=== PATIENT | female | born 1955 | race African-American/Black ===

== ENCOUNTER 2019-11-21 08:27 | Inpatient (IN) | payer MEDICARE, OTHER ==
[~2019-11-21] VITALS: Ht 162.6 cm; Wt 107.5 kg
[2019-11-21] MEDS ORDERED: SODIUM CHLORIDE 0.9% 1000ML 1,000 ML IV STA (08:34)
--- NOTE | 2019-11-21 08:34 | Emergency Department Note ---
History of Present Illnes History of Present Illness Chief Complaint: Abdominal Complaints History of Present Illness This is a 64 year old female with dysuria and periumbilical pain of one day duration. . Historian: Patient Arrival Mode: Car Onset (how long ago): day(s) Radiation: Reports back Severity: moderate Duration (how long): day(s) (1) Chronicity: new Relieving factors: none Exacerbating factors: none Associated symptoms: Reports nausea/vomiting Treatments prior to arrival: none Past Medical/Family History Physician Review I have reviewed the patient's past medical and family history. Any updates have been documented here. Past Medical History Recent Fever: Yes Clinical Suspicion of Infectio: Yes New/Unexplained Change in Ment: No Past Medical History: Hypertension Past Surgical History: None Social History Smoking Cessation: Never Smoker Alcohol Use: None Any Illegal Drug Use: No Review of Systems Review of Systems Constitutional: Reports no symptoms EENTM: Reports no symptoms Cardiovascular: Reports no symptoms Respiratory: Reports no symptoms Gastrointestinal: Reports abdominal pain, Reports nausea Genitourinary: Reports no symptoms Musculoskeletal: Reports no symptoms Integumentary: Reports no symptoms Neurological: Reports no symptoms Psychological: Reports no symptoms Endocrine: Reports no symptoms Hematological/Lymphatic: Reports no symptoms Physical Exam Related Data Allergies: Coded Allergies: No Known Allergies (Unverified , 11/21/19) Triage Vital Signs Vital Signs Date Time Temp Pulse Resp B/P (MAP) Pulse Ox O2 Delivery O2 Flow Rate FiO2 11/21/19 08:32 100.3 95 18 136/78 97 11/21/19 15:06 Mask 10 Vital signs reviewed: Yes Physical Exam CONSTITUTIONAL Constitutional: Present obese HENT HENT: Present normocephalic, Present atraumatic, Present oropharynx clear/moist, Present nose normal HENT L/R: Present left ext ear normal, Present right ext ear normal EYES Eyes: Reports PERRL, Reports conjunctivae normal NECK Neck: Present ROM normal PULMONARY Pulmonary: Present effort normal, Present breath sounds normal CARDIOVASCULAR Cardiovascular: Present regular rhythm, Present heart sounds normal, Present capillary refill normal, Present normal rate GASTROINTESTINAL Abdominal: Present soft, Present distension, Present tender (lisa-umbilical) GENITOURINARY Genitourinary: Present exam deferred SKIN Skin: Present warm, Present dry MUSCULOSKELETAL Musculoskeletal: Present ROM normal NEUROLOGICAL Neurological: Present alert, Present oriented x 3, Present no gross motor or sensory deficits PSYCHOLOGICAL Psychological: Present mood/affect normal, Present judgement normal Results Laboratory Lab results reviewed: Yes Laboratory comments Laboratory Tests Test 11/21/19 13:15 Imaging Imaging results reviewed: Yes Impressions [place] [id number] [place] [address] Patient Name: NABIL PIEDRA MR #: [id number] : 1955 Age/Sex: 64/F Req #: [id number] Adm Physician: Ordered by: ESTHER RIBEIRO DO Report #: [id number] Location: ER Room/Bed: Procedure: [id number] CT/CT ABDOMEN/PELVIS W Exam Date: 11/21/19 Exam Time: 1050 REPORT STATUS: Signed EXAM: CT Abdomen and Pelvis WITH contrast INDICATION: lisa-umbilical pain COMPARISON: None. TECHNIQUE: Abdomen and pelvis were scanned utilizing a multidetector helical scanner from the lung base to the pubic symphysis after administration of IV contrast. Coronal and sagittal reformations were obtained. Dose modulation, iterative reconstruction, and/or weight based adjustment of the mA/kV was utilized to reduce the radiation dose to as low as reasonably achievable. Routine protocol was performed. Scan was performed when during portal venous phase. IV CONTRAST: 150 mL of Omnipaque 300 ORAL CONTRAST: Water COMPLICATIONS: None RADIATION DOSE: Total DLP: 745.09 mGy-cm Estimated effective dose: (DLP x 0.015 x size factor) mSv CTDIvol has been reviewed. It is below the limits set by the Radiation Protocol Committee (RPC). FINDINGS: LINES and TUBES: None. LOWER THORAX: Unremarkable HEPATOBILIARY: No focal hepatic lesions. No biliary ductal dilation. GALLBLADDER: No radio-opaque stones or sludge. No gallbladder wall thickening. SPLEEN: No splenomegaly. No focal splenic lesion. PANCREAS: No focal masses or ductal dilatation. ADRENALS: No adrenal nodules KIDNEYS/URETERS: Kidneys enhance symmetrically. No hydronephrosis. No cystic or solid mass lesions. No stones. GI TRACT: No abnormal distention, or evidence of bowel obstruction. The appendix is enlarged and edematous (series 2, image [id number] with adjacent inflammatory stranding compatible with acute appendicitis. There is no evidence of perforation or phlegmon formation. PELVIC ORGANS/BLADDER: The bladder is unremarkable. LYMPH NODES: No lymphadenopathy. VESSELS: No aortic aneurysm or dissection. PERITONEUM / RETROPERITONEUM: No free air or fluid. BONES: There are degenerative changes in the spine. There is a focus of sclerosis in the L3 vertebral body likely a bone island. SOFT TISSUES: Unremarkable. IMPRESSION: Uncomplicated acute appendicitis. Signed by: Nikita Andres MD on 11/21/2019 11:45 AM Dictated By: NIKITA ANDRES MD 1145 Transcribed By: MIREILLE on 11/21/19 1145 COPY TO: ESTHER RIBEIRO DO~ Assessment & Plan Medical Decision Making MDM 64 yof with abdominal pain. CBC, CMP, UA and CTS ordered to r/o appendicitis, diverticulitis, UTI, kidney stone, perforated viscus, obstruction, ischemia, and biliary pathology. Plan to admit to Dr Mayco Virgen's service with consult to Dr Kristopher Stephen who graciously agreed to see patient at bedside. Assessment & Plan Final Impression: (1) Appendicitis Depart Disposition: ADMITTED ESTHER RIBEIRO DO Nov 21, 2019 08:34
[2019-11-21] MEDS ORDERED: ONDANSETRON HCL INJ 2MG/ML 2ML 2 MG/ML VIAL IV NR ×2 (08:45→11:30)
[2019-11-21] MEDS ORDERED: KETOROLAC TROMETHAMINE 30 MG/ML VIAL IV NR (08:45)
[2019-11-21] MEDS ORDERED: ACETAMINOPHEN 325 MG TAB PO NR (08:45)
[2019-11-21 09:29] LABS: BASOPHILS # (AUTO) 0.1 (0.0-0.1); BASOPHILS % 0.6 % (0.0-1.0); EOSINOPHILS # (AUTO) 0.1 (0.0-0.4); EOSINOPHILS % 0.3 % (0.0-6.0); LYMPHOCYTES # (AUTO) 1.8 (1.0-3.2); LYMPHOCYTES % 12.4 % (18.0-39.1); MEAN CORPUSCULAR HEMOGLOBIN 27.5 pg (28-32); MEAN CORPUSCULAR HGB CONC 32.5 g/dL (31-35); MEAN CORPUSCULAR VOLUME 84.6 fL (81-99); MONOCYTES # (AUTO) 1.1 (0.2-0.8); MONOCYTES % 7.6 % (4.4-11.3); NEUTROPHILS # (AUTO) 11.3 (2.1-6.9); NEUTROPHILS % 78.5 % (38.7-80.0); PLATELET COUNT 278 x10e3/uL (140-360); RED BLOOD COUNT 4.73 x10e6/uL (3.6-5.1); RED CELL DISTRIBUTION WIDTH 14.5 % (11.7-14.4)
[2019-11-21 10:24] LABS: ALANINE AMINOTRANSFERASE 15 IU/L (0-55); ALBUMIN 3.8 g/dL (3.5-5.0); ALKALINE PHOSPHATASE 75 IU/L (40-150); ANION GAP 14.1 mmol/L (8-16); BLOOD UREA NITROGEN 7 mg/dL (7-26); BUN/CREATININE RATIO 9 (6-25); CALCIUM 9.7 mg/dL (8.4-10.2); CARBON DIOXIDE 27 mmol/L (22-29); CHLORIDE 99 mmol/L (98-107); CLARITY,URINE HAZY (CLEAR); COLOR,URINE YELLOW (YELLOW); CREATININE, SERUM 0.75 mg/dL (0.57-1.11); EST GLOMERULAR FILTRATION RATE > 60 ML/MIN (60-); GLUCOSE 121 mg/dL (74-118); KETONES,URINE TRACE (NEGATIVE); LEUKOCYTE ESTERASE ,URINE NEGATIVE (NEGATIVE); LIPASE 26 U/L (8-78); NITRITE,URINE NEGATIVE (NEGATIVE); POTASSIUM 3.1 mmol/L (3.5-5.1); PROTEIN,URINE DIPSTICK >=300 (NEGATIVE); SODIUM 137 mmol/L (136-145)
[2019-11-21 10:25] LABS: BILIRUBIN,URINE SMALL (NEGATIVE); URINE UROBILINOGEN 0.2 mg/dL (0.2 - 1)
[2019-11-21 10:29] LABS: BACTERIA,URINE FEW /HPF; EPITHELIAL CELLS,URINE FEW /LPF; MUCUS,URINE MODERATE (RARE); RBC,URINE 0-5 /HPF (0-5); WBC,URINE (MAN) 0-5 /HPF (0-5)
[2019-11-21] MEDS ORDERED: SODIUM CHLORIDE 0.9% 50ML 50 ML ONE (10:40)
[2019-11-21] MEDS ORDERED: IOPAMIDOL 370 MG/ML 200 ML INFUS..BTL INJ ONE (10:40)
--- NOTE | 2019-11-21 10:55 | NUR ---
REC'D REPORT FROM [facility] FOR CONTINUITY OF CARE
[2019-11-21] MEDS ORDERED: MORPHINE SULFATE 2 MG/ML SYR 1ML IV NR (11:15)
--- NOTE | 2019-11-21 11:49 | Diagnostic Imaging Report ---
EXAM: CT Abdomen and Pelvis WITH contrast INDICATION: lisa-umbilical pain COMPARISON: None. TECHNIQUE: Abdomen and pelvis were scanned utilizing a multidetector helical scanner from the lung base to the pubic symphysis after administration of IV contrast. Coronal and sagittal reformations were obtained. Dose modulation, iterative reconstruction, and/or weight based adjustment of the mA/kV was utilized to reduce the radiation dose to as low as reasonably achievable. Routine protocol was performed. Scan was performed when during portal venous phase. IV CONTRAST: 150 mL of Omnipaque 300 ORAL CONTRAST: Water COMPLICATIONS: None RADIATION DOSE: Total DLP: 745.09 mGy-cm Estimated effective dose: (DLP x 0.015 x size factor) mSv CTDIvol has been reviewed. It is below the limits set by the Radiation Protocol Committee (RPC). FINDINGS: LINES and TUBES: None. LOWER THORAX: Unremarkable HEPATOBILIARY: No focal hepatic lesions. No biliary ductal dilation. GALLBLADDER: No radio-opaque stones or sludge. No gallbladder wall thickening. SPLEEN: No splenomegaly. No focal splenic lesion. PANCREAS: No focal masses or ductal dilatation. ADRENALS: No adrenal nodules KIDNEYS/URETERS: Kidneys enhance symmetrically. No hydronephrosis. No cystic or solid mass lesions. No stones. GI TRACT: No abnormal distention, or evidence of bowel obstruction. The appendix is enlarged and edematous (series 2, image [id number] with adjacent inflammatory stranding compatible with acute appendicitis. There is no evidence of perforation or phlegmon formation. PELVIC ORGANS/BLADDER: The bladder is unremarkable. LYMPH NODES: No lymphadenopathy. VESSELS: No aortic aneurysm or dissection. PERITONEUM / RETROPERITONEUM: No free air or fluid. BONES: There are degenerative changes in the spine. There is a focus of sclerosis in the L3 vertebral body likely a bone island. SOFT TISSUES: Unremarkable. IMPRESSION: Uncomplicated acute appendicitis. Signed by: Nikita Acuna MD on 11/21/2019 11:45 AM
[2019-11-21] MEDS ORDERED: ONDANSETRON HCL INJ 2MG/ML 2ML 2 MG/ML VIAL IV PRN ×3 (12:00→15:00)
[2019-11-21] MEDS ORDERED: SODIUM CHLORIDE 0.9% 1000ML 1,000 ML IV SCH ×2 (12:00→15:00)
[2019-11-21] MEDS ORDERED: MORPHINE SULFATE 2 MG/ML SYR 1ML IV PRN ×2 (12:00→15:00)
--- NOTE | 2019-11-21 12:14 | NUR ---
TALK TO PATIENT RE ADMISSION TO HOSPITAL
[2019-11-21] MEDS: PIPER-TAZ 3.375 GM 50 ML IV SCH ×2 (12:15→17:12)
--- NOTE | 2019-11-21 12:59 | NUR ---
DR. LOPEZ HERE TO SEE THE PATIENT
--- NOTE | 2019-11-21 13:23 | NUR ---
SWABBED FOR COVID-19
[2019-11-21] MEDS ORDERED: BUPIVACAINE HCL 0.5% INJ 30 ML VIAL INJ ONE (13:46)
[2019-11-21] MEDS ORDERED: ETOMIDATE 2 MG/ML 10 ML INJ IV ONE (14:06)
[2019-11-21] MEDS ORDERED: ROCURONIUM BROMIDE 10 MG/ML 5ML VIAL IV ONE (14:06)
[2019-11-21] MEDS ORDERED: LIDOCAINE HCL 2% LOCAL INJ 5 ML SDV VIAL INJ ONE (14:06)
[2019-11-21] MEDS ORDERED: DEXAMETHASONE SOD PHOS INJ 4 MG/ML VIAL ONE (14:06)
[2019-11-21] MEDS ORDERED: PROPOFOL IV EMULSION 10 MG/ML 20 ML VIAL ONE (14:06)
[2019-11-21] MEDS ORDERED: ONDANSETRON HCL INJ 2MG/ML 2ML 2 MG/ML VIAL ONE ×2 (14:06→15:54)
[2019-11-21] MEDS ORDERED: SUCCINYLCHOLINE CHLORIDE 20 MG/ML 10ML VIAL ONE (14:06)
[2019-11-21] MEDS ORDERED: SUGAMMADEX SODIUM 200 MG/2 ML VIAL IV ONE (14:48)
[2019-11-21] MEDS ORDERED: MORPHINE SULFATE INJ 4 MG/ML INJ 1ML IV PRN (15:00)
[2019-11-21] MEDS ORDERED: NALOXONE HCL INJ 0.4 MG/ML AMP ONE (15:01)
[2019-11-21 16:26] VITALS: BP 141/61
[2019-11-21 16:33] VITALS: BP 141/61
--- NOTE | 2019-11-21 16:44 | NUR ---
patient received from pacu via stretcher. see admit assess. sinus rhythm with 1st degree av block. 3 trocar sites to abdomen dry and intact. vitals stable with no distress.
[2019-11-21] MEDS: DEXTROSE 5%/0.45% SOD CHL 1,000 ML IV SCH (16:45)
[2019-11-21] MEDS: HYDROCODONE/APAP 5MG-325MG TAB PO PRN ×2 (17:44→22:26)
[2019-11-21] MEDS ORDERED: PIPER-TAZ 3.375 GM 50 ML IV SCH (18:00)
--- NOTE | 2019-11-21 19:51 | Consultation ---
DATE OF CONSULTATION: 11/21/2019 HISTORY OF PRESENT ILLNESS: The patient is a 64-year-old female, presents with complaints of abdominal pain. She has had for three days. She had some associated nausea. The pains persisted, mostly periumbilical, but also right lower abdomen. She has not had any fever. She was evaluated CT of the abdomen and pelvis, which revealed findings of acute appendicitis. PAST MEDICAL HISTORY: Significant for hypertension for which she takes hydrochlorothiazide. She has not had previous surgery. ALLERGIES: THERE ARE NO KNOWN ALLERGIES. FAMILY HISTORY: Noncontributory. SOCIAL HISTORY: The patient occasionally smokes cigarettes. Does not drink alcohol use or any other drugs. REVIEW OF SYSTEMS: As stated above, otherwise was negative. PHYSICAL EXAMINATION: GENERAL: The patient is awake and alert, in no distress. She had a temperature of 100.3 on arrival. HEENT: Sclerae is not icteric. NECK: Supple. No masses. LUNGS: Equal breath sounds are clear bilaterally. CARDIAC: Regular rate and rhythm with no murmur. ABDOMEN: Tender in the right lower quadrant, localized signs of peritonitis. There is no mass. No organomegaly. EXTREMITIES: Have no edema. NEUROLOGIC: Grossly intact. LABORATORY TESTS: White blood cell count is 14.4, hemoglobin 13, and hematocrit 40. Chemistries were essentially normal. Potassium, slightly low. ASSESSMENT: A 64-year-old female, acute appendicitis. She will benefit from appendectomy. PLAN: To schedule for today. Procedure was explained to the patient including risks, benefits, and alternatives. She understands. She has had the opportunity to ask questions. She is aware of the possible need for open surgery. Thank you for asking me to see Ms. Chavarria. MD LOBO Barcenas/NISHA /[id number]
[2019-11-21] MEDS ORDERED: MIDAZOLAM HCL 2 MG/2 ML VIAL ONE (19:53)
[2019-11-21] MEDS ORDERED: FENTANYL CITRATE/PF 100MCG/2 ML INJ ONE (19:53)
--- NOTE | 2019-11-21 20:41 | Operative Report ---
DATE OF PROCEDURE: 11/21/2019 SURGEON: Augustine Stephen MD PREOPERATIVE DIAGNOSIS: Acute appendicitis. POSTOPERATIVE DIAGNOSIS: Acute appendicitis. PROCEDURES: Diagnostic laparoscopy, laparoscopic appendectomy. HAND EXPANSION ENVELOPE MAKER: None. ANESTHESIA: General endotracheal. INDICATIONS AND FINDINGS: The patient is a 64-year-old female, admitted with 3-day history of abdominal pain, localized right lower quadrant. Workup revealed acute appendicitis. At Surgery, the patient was found acutely inflamed appendix. TECHNIQUE: After adequate general endotracheal anesthesia, the patient in supine position, the abdomen was prepped and draped in sterile fashion with ChloraPrep solution. Skin in the umbilicus was infiltrated with 0.5% Marcaine. Incision was made in the umbilicus. Abdominal wall was elevated and Veress needle was introduced. Pneumoperitoneum was then created. A 10 mm trocar and cannula was then passed through the umbilical wound. Laparoscopic camera was introduced. Initial laparoscopy revealed some inflammatory change in the right lower quadrant. A 12 mm trocar and cannula were placed suprapubically and a 5 mm trocar and cannula were placed in the right upper quadrant, these were placed under direct vision. The cecum was elevated, was found to be a small bowel adhered over acutely inflamed appendix. The fibrinous adhesions were broken up. Appendix was adherent to the pelvic sidewall, this was freed, at break fibrinous adhesions appendix was elevated. The mesoappendix was divided with LigaSure device. The base of the appendix was divided with Endo-RICH stapler, close to the cecum, freeing the appendix completely. Appendix was then placed into an Endopouch and brought out through the suprapubic cannula. Care was taken to not touch the abdominal wall. The area of the appendectomy was inspected for hemostasis, which was seen to be adequate. It was irrigated with saline. All fluid aspirated and inspected for hemostasis, which was seen to be adequate. Instruments and cannulas were removed. Pneumoperitoneum was evacuated. Wounds were then closed, fascia in the umbilical and suprapubic wounds closed with 0 Vicryl. Skin to all wounds closed with 4-0 Vicryl in subcuticular fashion. Dermabond and sterile dressing were applied. The patient tolerated the procedure well. Estimated blood loss was 10 mL. There were no complications. All counts were correct. The patient was taken to the recovery room in satisfactory condition. Augustine W MD LOBO Stephen/NISHA /[id number]
[2019-11-21 20:51] VITALS: BP 138/51
[2019-11-21 21:00] VITALS: BP 138/51
[2019-11-22] VITALS: BP 120/50
[2019-11-22] MEDS: PIPER-TAZ 3.375 GM 50 ML IV SCH ×2 (01:08→05:49)
[2019-11-22] MEDS: DEXTROSE 5%/0.45% SOD CHL 1,000 ML IV SCH (01:09)
[2019-11-22 04:00] VITALS: BP 119/52
[2019-11-22 05:37] LABS: BASOPHILS # (AUTO) 0.1 (0.0-0.1); BASOPHILS % 0.3 % (0.0-1.0); HEMATOCRIT 34.5 % (34.2-44.1); HEMOGLOBIN 10.9 g/dL (12.0-16.0); LYMPHOCYTES % 6.2 % (18.0-39.1); MEAN CORPUSCULAR HEMOGLOBIN 27.3 pg (28-32); MEAN CORPUSCULAR HGB CONC 31.6 g/dL (31-35); MEAN CORPUSCULAR VOLUME 86.3 fL (81-99); MONOCYTES % 6.4 % (4.4-11.3); NEUTROPHILS # (AUTO) 13.8 (2.1-6.9); NEUTROPHILS % 86.5 % (38.7-80.0); PLATELET COUNT 241 x10e3/uL (140-360); RED CELL DISTRIBUTION WIDTH 14.6 % (11.7-14.4)
[2019-11-22 06:48] LABS: ALANINE AMINOTRANSFERASE 40 IU/L (0-55); ALBUMIN 3.1 g/dL (3.5-5.0); ALBUMIN/GLOBULIN RATIO 0.9 (0.8-2.0); ALKALINE PHOSPHATASE 68 IU/L (40-150); ANION GAP 11.5 mmol/L (8-16); BLOOD UREA NITROGEN 8 mg/dL (7-26); BUN/CREATININE RATIO 11 (6-25); CALCIUM 8.5 mg/dL (8.4-10.2); CARBON DIOXIDE 26 mmol/L (22-29); CHLORIDE 104 mmol/L (98-107); CREATININE, SERUM 0.75 mg/dL (0.57-1.11); EST GLOMERULAR FILTRATION RATE > 60 ML/MIN (60-); GLUCOSE 165 mg/dL (74-118); POTASSIUM 3.5 mmol/L (3.5-5.1); SODIUM 138 mmol/L (136-145)
[2019-11-22] MEDS ORDERED: ULTRACET TABLE1 EACH PO (06:58)
[2019-11-22 07:57] VITALS: BP 129/62
[2019-11-22 09:07] VITALS: BP 129/62
--- NOTE | 2019-11-23 05:16 | Discharge Summary ---
DISCHARGE DIAGNOSIS: Appendicitis, status post laparoscopic appendectomy. HISTORY OF PRESENT ILLNESS AND HOSPITAL COURSE: The patient is a lady, who presented with right lower quadrant abdominal pain, was found to have acute appendicitis on CT scan, uncomplicated. She was then taken to the OR by Dr. Stephen, who performed a laparoscopic appendectomy without any complications. On postop day #1 she was already ambulating, doing well, having minimal discomfort with positive flatus and she really want to go home once she was cleared by Dr. Stephen. She was able to be discharged home in good condition and follow up with her primary care physician in 1 to 2 weeks as well as with Dr. Stephen in about 10 to 14 days. Please see hospital chart for full details. MD MARTHA Kinsey/NISHA /[id number]
--- OUTSIDE RECORDS SUMMARY | 2019-12-25 02:11 | XMS REPORT | Clinical Summary ---
Author Author [facility] Organization [facility] ict Address Unknown Phone Unavailable Care Team Providers Care Infrastructure Consultant Name Role Phone Verna Dunn MD PCP [phone] Allergies Comments Active Allergy Reactions Severity Noted Date Flu Vac 2011 Nausea and High 03/31/2014 (18-64yrs)(Pf) Vomiting Medications End Date Status Medication Sig Dispensed Refills Start Date Active blood glucose Use as 1 Kit 0 meterIndications: Type II directed. 0 or unspecified type diabetes mellitus without mention of complication, not stated as uncontrolled Active LANCETSIndications: Type Use as 1 Box 2 1 II or unspecified type Directed 0 diabetes mellitus without mention of complication, not stated as uncontrolled Active baclofen (LIORESAL) 10 mg Take 1 tablet 30 tablet 0 tabletIndications: by mouth 3 8 Medication refill times daily as needed for Pain. Active Diclofenac Sodium Apply to 100 g 0 05/16/20 1 (VOLTAREN) 1 % affected 8 GelIndications: Acute area. pain of both knees, Low back pain without sciatica, unspecified back pain laterality, unspecified chronicity Active amLODIPine (NORVASC) 5 mg Take 1 tablet 90 tablet 3 tabletIndications: by mouth 9 Essential hypertension, daily. benign, Medication refill Active hydroCHLOROthiazide Take 1 tablet 90 tablet 3 (HYDRODIURIL) 25 mg by mouth 9 tabletIndications: daily. Essential hypertension, benign, Medication refill Active atorvastatin (LIPITOR) 40 Take 1 tablet 90 tablet 2 mg tabletIndications: by mouth at 9 Mixed hyperlipidemia bedtime nightly. Active traMADol (ULTRAM) 50 mg Take 1 tablet 30 tablet 0 tabletIndications: Acute by mouth 9 pain of both knees, Low every 8 hours back pain without as needed for sciatica, unspecified Pain. back pain laterality, unspecified chronicity Active docusate sodium (COLACE) Take 1 -4 /d 100 capsule 3 100 mg depending on 9 capsuleIndications: bowels. Constipation, unspecified constipation type Active traMADol (ULTRAM) 50 mg Take 1 tablet 60 tablet 3 tabletIndications: Low by mouth 2 9 back pain with sciatica, times daily sciatica laterality Take 1 pill unspecified, unspecified twice a day. back pain laterality, unspecified chronicity Active Problems Problem Noted Date Osteomyelitis of shoulder, right 05/30/2010 Chronic right shoulder pain 05/30/2010 Osteoarthritis of right shoulder region 05/30/2010 Adhesive capsulitis of shoulder 05/30/2010 DJD of shoulder 05/23/2010 Unspecified constipation 06/22/2009 Knee pain 05/26/2009 Obesity, unspecified 05/26/2009 HTN (hypertension) Immunizations Name Administration Dates Next Due Influenza Vaccine 03/31/2014 (Deferred: Patie nt Refused) Influenza Vaccine, 05/16/2018 (Deferred: Contr aindication) Seasonal, Injectable PPD 03/15/2014 Td Tetanus, diphtheria 11/24/2008 Toxoids Vaccine Family History Medical History Relation Name Comments Arthritis Father Heart Mother Relation Name Status Comments Brother Alive Father Alive Maternal Grandfather Maternal Grandmother Mother heart attack (Age 67) Paternal Grandfather Paternal Grandmother Sister Alive Social History Date Tobacco Use Types Packs/Day Years Used Current Every Day Smoker Cigarettes 0 10 Smokeless Tobacco: Never Used Tobacco Cessation: Counseling Given: Yes Comments: 4 cigarettes daily Drinks/Week oz/Week Comments Alcohol Use occasional beer Yes Food Insecurity Answer Date Recorded Within the past 12 months, you worried that your Never joie e 08/09/2017 food would run out before you got money to buy more. Within the past 12 months, the food you bought Never true 08/09/2017 just didn't last and you didn't have mo kiki to get more. Sex Assigned at Date Recorded Not on file Industry Job Start Date Occupation Not on file Not on file Not on file Travel End Travel History Travel Start No recent travel history available. Last Filed Vital Signs Not on file Plan of Treatment Health Maintenance Due Date Last Done Comments Colonoscopy 10yr 05/27/2017 05/27/2007 IMM Pneumococcal Age 65 2019 and Up Breast Cancer Scrn 08/02/2019 08/01/2018, (Yearly) 08/09/2017, 08/09/2017, Additional history exists Results Not on fileafter 11/20/2018
--- OUTSIDE RECORDS SUMMARY | 2019-12-25 02:12 | XMS REPORT | Continuity of Care Document ---
Author Author [facility] t Organization [facility] Address [address] [place] [address] Phone Unavailable Care Team Providers Care Market Development Manager Name Role Phone MD Ne LU PCP ESTHER RIBEIRO Unavailable Payers Payer Name Policy Type Policy Number Effective Date Expiration Date S ource Medicare A & B [id number] [facility] Problems Condition Name Condition Details Condition Category Status Onset Date Resolution Date Last Treatment Date Treating Clinician Comments Source Osteomyelitis of shoulder, right Osteomyelitis of shoulder, righ t Disease Active 2010-05-30 00:00:00 [facility] Chronic right shoulder pain Chronic right shoulder pain Disease Active 2010-05-30 00:00:00 [facility] rachel Osteoarthritis of right shoulder region Osteoarthritis of ri ght shoulder region Disease Active 2010-05-30 00:00:00 [facility] 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 Dis ease Active 2010-05-30 00:00:00 [facility] DJD of shoulder DJD of shoulder Disease Active 2010-05-23 00:00:00 [facility] Unspecified constipation Unspecified constipation Disease Acti ve 2009-06-22 00:00:00 [facility] Knee pain Knee pain Disease Active 2009-05-26 00:00:00 [facility] Obesity, unspecified Obesity, unspecified Disease Active 00:00:00 [facility] Appendicitis Problem Active [facility] HTN (hypertension) HTN (hypertension) Disease Active [facility] Allergies, Adverse Reactions, Alerts Allergy Name Allergy Type Status Severity Reaction(s) Onset Date Inacti ve Date Treating Clinician Comments Source Flu Vac 2011 (18-64yrs)(Pf) Propensity to adverse reactions to drug Active Nausea and [facility] 2014[facility]03[facility] Family Member Diagnosis Comments Start Date Stop Date Source Natural father Arthritis [facility] Natural mother Heart [facility] Social History Social Habit Start Date Stop Date Quantity Comments Source History of tobacco use Cigarette Smoker [facility] Sex Assigned At [facility] Alcohol intake 2018-10-29 00:00:00 2018-10-29 00:00:00 Current drinker of alcohol (finding) [facility] SDOH Food Worry 2017-08-09 00:00:00 2017-08-09 00:00:00 1 [facility] Food Scarcity 2017-08-09 00:00:00 2017-08-09 00:00:00 1 [facility] Tobacco Comment 2015-09-06 00:00:00 2015-09-06 00:00:00 4 cigarettes daily [facility] Alcohol Comment 2015-09-06 00:00:00 2015-09-06 00:00:00 occasional be er [facility] Smoking Status Start Date Stop Date Source Current every day smoker 2018-10-29 00:00:00 [facility] Medications Ordered Medication Name Filled Medication Name Start Date Stop Da te Current Medication? Ordering Clinician Indication Dosage Frequency Signature (SIG) Comments Components Source docusate sodium (COLACE) 100 mg capsule 2018-09-08 00:00:00 Yes Constipation, unspecified constipation type Take 1 -4 /d depending on bowels. [facility] traMADol (ULTRAM) 50 mg tablet 2018-09-08 00:00:00 Yes Low back pain with sciatica, sciatica laterality unspecified, unspecified back pain laterality, unspecified chronicity 50mg Q.5D Take 1 tablet by mouth 2 times daily Take 1 pill twice a day. [facility] amLODIPine (NORVASC) 5 mg tablet 2018-08-01 00:00:00 Yes Medication refill 5mg QD Take 1 tablet by mouth daily. [facility] hydroCHLOROthiazide (HYDRODIURIL) 25 mg tablet 2018-08-01 00 :00:00 Yes Medication refill 25mg QD Take 1 tablet by mouth daily. [facility] atorvastatin (LIPITOR) 40 mg tablet 2018-08-01 00:00:00 Yes Mixed hyperlipidemia 40mg Take 1 tablet by mouth at bedtime nightly. [facility] traMADol (ULTRAM) 50 mg tablet 2018-08-01 00:00:00 Yes Low back pain without sciatica, unspecified back pain laterality, unspecified chronicity 50mg Take 1 tablet by mouth every 8 hours as needed for Pain. [facility] Diclofenac Sodium (VOLTAREN) 1 % Gel 2018-05-16 00:00:00 Yes Low back pain without sciatica, unspecified back pain laterality, unspecified chronicity Apply to affected area. [facility] baclofen (LIORESAL) 10 mg tablet 2017-12-06 00:00:00 Yes Medication refill 10mg Take 1 tablet by mouth 3 times daily as needed for Pain. [facility] blood glucose meter 2010-03-20 00:00:00 Yes Type II or unspecified type diabetes mellitus without mention of complication, not stated as uncontrolled Use as directed. [facility] LANCETS 2010-03-20 00:00:00 Yes Type II or unspecified type diabetes mellitus without mention of complication, not stated as uncontrolled Use as Directed [facility] Tramadol Hcl/Acetaminophen (Ultracet Tablet) 1 Each TA BLET Tramadol Hcl/Acetaminophen (Ultracet Tablet) 1 Each TABLET Yes Every 4 Hours as needed for Mild Pain (1-3) Or Fever>100.8 [facility] Immunizations Ordered Immunization Name Filled Immunization Name Date Status Comments Source PPD 2014-03-15 00:00:00 Completed [facility] Td Tetanus, diphtheria Toxoids Vaccine 2008-11-24 00:00:00 Completed [facility] Vital Signs Vital Name Observation Time Observation Value Comments Source Body Temperature 2019-11-22 09:07:00 98.5 [degF] [facility] BMI (Body Mass Index) 2019-11-21 16:23:00 40.7 kg/m2 [facility] Weight 2019-11-21 08:32:00 237 [lb_av] [facility] Procedures Procedure Date / Time Performed Performing Clinician [facility] e Computed tomography of abdomen and pelvis with contrast 00:00:00 [facility] Plan of Care Planned Activity Planned Date Details Comments Source Future Scheduled Test 2019-08-02 00:00:00 Breast Cancer Scrn (Yearly) [code = Breast Cancer Scrn (Yearly)] [facility] Future Scheduled Test 2019 00:00:00 IMM Pneumococcal A ge 65 and Up [code = IMM Pneumococcal Age 65 and Up] [facility] Scheduled Test 2017-05-27 00:00:00 Screening for reagan gnant neoplasm of colon (procedure) [code = 733218235] [facility] Instructions Wound Care (General) [facility] Encounters Start Date/Time End Date/Time Encounter Type Admission Type [facility] Care Department Encounter ID Source 2019-11-21 12:04:00 2019-11-22 09:15:00 Discharged Inpatient 1 ESTHER RIBEIRO [facility] [id number] [facility] 2018-09-05 00:00:00 2018-09-05 00:00:00 Outpatient [facility] [id number] [facility] 2018-09-05 00:00:00 2018-09-05 00:00:00 Outpatient [facility] [id number] [facility] 2018-09-02 00:00:00 2018-09-02 00:00:00 Outpatient [facility] [id number] [facility] 2018-08-08 00:00:00 2018-08-08 00:00:00 Outpatient [facility] [id number] [facility] 2018-08-08 00:00:00 2018-08-08 00:00:00 Outpatient [facility] [id number] [facility] 2018-08-08 00:00:00 2018-08-08 00:00:00 Outpatient [facility] [id number] [facility] 2018-08-06 00:00:00 2018-08-06 00:00:00 Outpatient [facility] [id number] [facility] 2018-08-06 00:00:00 2018-08-06 00:00:00 Outpatient [facility] [id number] [facility] 2018-08-01 14:10:15 2018-08-01 14:10:15 Outpatient [facility] [id number] [facility] 2018-08-01 13:26:35 2018-08-01 13:26:35 Outpatient [facility] [id number] [facility] 2018-08-01 13:21:23 2018-08-01 13:21:23 Outpatient [facility] [id number] [facility] 2018-08-01 12:35:18 2018-08-01 12:35:18 Outpatient [facility] [id number] [facility] 2018-06-27 10:54:51 2018-06-27 10:54:51 Outpatient [facility] [id number] [facility] 2018-05-16 09:14:35 2018-05-16 09:14:35 Outpatient [facility] [id number] [facility] 2017-12-06 09:12:20 2017-12-06 09:12:20 Outpatient [facility] [id number] [facility] 2017-10-17 11:22:20 2017-10-17 11:22:20 Outpatient [facility] [id number] [facility] 2017-10-17 00:00:00 2017-10-17 00:00:00 Outpatient [facility] [id number] [facility] 2017-10-16 00:00:00 2017-10-16 00:00:00 Outpatient [facility] [id number] [facility] 2017-08-20 00:00:00 2017-08-20 00:00:00 Outpatient [facility] [id number] [facility] 2017-08-09 14:08:59 2017-08-09 14:08:59 Outpatient [facility] [id number] [facility] 2017-08-09 09:06:49 2017-08-09 09:06:49 Outpatient [facility] [id number] [facility] Results Test Description Test Time Test Comments Results Result Comments Source Blood leukocytes automated count (number/volume) 2019-11-22 05:20:00 Test Item White Blood Count (test code = 6690-2) 15.95 4.8-10.8 [facility] erythrocytes automated count (number/volume)2019-11-22 05:20:00* Test Item Value Reference Range Interpretation Comments Red Blood Count (test code = 789-8) 4.00 3.6-5.1 [facility] CenterBlood hemoglobin measurement (moles/volume)2019-11-22 05:20:00* Test Item Value Reference Range Interpretation Comments Hemoglobin (test code = 47652-2) 10.9 12.0-16.0 [facility] CenterAutomated blood hematocrit (volume fraction)2019-11-22 05:20:00* Test Item Value Reference Range Interpretation Comments Hematocrit (test code = 4544-3) 34.5 34.2-44.1 [facility] CenterAutomated erythrocyte mean corpuscular vsuzfi1666-93-20 05:20:00* Test Item Value Reference Range Interpretation Comments Mean Corpuscular Volume (test code = 787-2) 86.3 81-99 [facility] CenterAutomated erythrocyte mean corpuscular hemoglobin (mass per erythrocyte)2019-11-22 05:20:00* Test Item Value Reference Range Interpretation Comments Mean Corpuscular Hemoglobin (test code = 785-6) 27.3 28-32 [facility] CenterAutomated erythrocyte mean corpuscular hemoglobin concentration measurement (mass/volume)2019-11-22 05:20:00* Test Item Value Reference Range Interpretation Comments Mean Corpuscular Hemoglobin Concent (test code = 786-4) 31.6 31-35 [facility] CenterRDW MvjMo-Iix9186-64-28 05:20:00* Test Item Value Reference Range Interpretation Comments Red Cell Distribution Width (test code = 41735-2) 14.6 11.7 -14.4 [facility] CenterAutomated blood platelet count (count/volume)2019-11-22 05:20:00* Test Item Value Reference Range Interpretation Comments Platelet Count (test code = 777-3) 241 140-360 [facility] neutrophil count as percentage of total zzazdkmsey9022-80-66 05:20:00* Test Item Value Reference Range Interpretation Comments Neutrophils (%) (Auto) (test code = 93609-2) 86.5 38.7-80.0 [facility] CenterAutomated blood lymphocyte count as percentage ot total srqzgluepn4332-75-93 05:20:00* Test Item Value Reference Range Interpretation Comments Lymphocytes (%) (Auto) (test code = 736-9) 6.2 18.0-39.1 [facility] monocyte count as percentage of total dysttdbdzk9349-81-72 05:20:00* Test Item Value Reference Range Interpretation Comments Monocytes (%) (Auto) (test code = 5905-5) 6.4 4.4-11.3 [facility] CenterAutom[facility] blood eosinophil count as percentage of total tnxuoruwdu5832-14-11 05:20:00* Test Item Value Reference Range Interpretation Comments Eosinophils (%) (Auto) (test code = 713-8) 0.0 0.0-6.0 [facility] CenterAutom[facility] blood basophil count as percentage of total etbzwulrvw3816-14-71 05:20:00* Test Item Value Reference Range Interpretation Comments Basophils (%) (Auto) (test code = 706-2) 0.3 0.0-1.0 [facility] CenterFluoroscopic procedure less than one hour ijavuegz4635-44-71 05:20:00* Test Item Value Reference Range Interpretation Comments IM GRANULOCYTES % (test code = IM GRANULOCYTES %) 0.6 0.0- 1.0 [facility] CenterAutomated blood neutrophil count 2019-11-22 05:20:00* Test Item Value Reference Range Interpretation Comments Neutrophils # (Auto) (test code = 751-8) 13.8 2.1-6.9 [facility] CenterBlood lymphocytes count (number/volume) 2019-11-22 05:20:00* Test Item Value Reference Range Interpretation Comments Lymphocytes # (Auto) (test code = 23133-9) 1.0 1.0-3.2 [facility] monocytes automated count (number/volume)2019-11-22 05:20:00* Test Item Value Reference Range Interpretation Comments Monocytes # (Auto) (test code = 742-7) 1.0 0.2-0.8 [facility] CenterAutom[facility] blood eosinophil count 2019-11-22 05:20:00* Test Item Value Reference Range Interpretation Comments Eosinophils # (Auto) (test code = 711-2) 0.0 0.0-0.4 [facility] CenterAutomated blood basophil count (count/volume)2019-11-22 05:20:00* Test Item Value Reference Range Interpretation Comments Basophils # (Auto) (test code = 704-7) 0.1 0.0-0.1 [facility] CenterFluoroscopic procedure less than one hour hytbnvel6222-67-73 05:20:00* Test Item Value Reference Range Interpretation Comments Absolute Immature Granulocyte (auto (marianne t code = Absolute Immature Granulocyte (auto) 0.09 0-0.1 [facility] Tylererum or plasma sodium measurement (moles/volume)2019-11-22 05:20:00* Test Item Value Reference Range Interpretation Comments Sodium Level (test code = 2951-2) 138 136-145 [facility] Tylererum or plasma potassium measurement (moles/volume)2019-11-22 05:20:00* Test Item Value Reference Range Interpretation Comments Potassium Level (test code = 2823-3) 3.5 3.5-5.1 [facility] Tylererum or plasma chloride measurement (moles/volume)2019-11-22 05:20:00* Test Item Value Reference Range Interpretation Comments Chloride Level (test code = 2075-0) 104 98-107 [facility] Tylererum or plasma carbon dioxide, total measurement (moles/volume)2019-11-22 05:20:00* Test Item Value Reference Range Interpretation Comments Carbon Dioxide Level (test code = 2028-9) 26 22-29 [facility] Tylererum or plasma anion shz2540-52-75 05:20:00* Test Item Value Reference Range Interpretation Comments Anion Gap (test code = 18932-2) 11.5 8-16 [facility] Tylererum or plasma urea nitrogen measurement (mass/volume)2019-11-22 05:20:00* Test Item Value Reference Range Interpretation Comments Blood Urea Nitrogen (test code = 3094-0) 8 7-26 [facility] Tylererum or plasma creatinine measurement (mass/volume)2019-11-22 05:20:00* Test Item Value Reference Range Interpretation Comments Creatinine (test code = 2160-0) 0.75 0.57-1.11 [facility] Tylererum or plasma urea nitrogen/creatinine mass jultn4421-51-83 05:20:00* Test Item Value Reference Range Interpretation Comments BUN/Creatinine Ratio (test code = 3097-3) 11 6-25 [facility] CenterEstimated glomerular filtration rate (GFR) ifpecomohgazt7413-92-22 05:20:00* Test Item Value Reference Range Interpretation Comments Estimat Glomerular Filtration Rate (test code = 142399652) > 60 >60 Ranges were taken from the National Kidney Disease Education Program and the [facility] [employer] literature.Reference ranges:60 or greater: Cmdvkk60-84 ( for 3 consecutive months): Chronic kidney disease 15 or less: Kidney failureLamb Healthcare CenterGlucose chtxjncmnwy7136-30-02 05:20:00* Test Item Value Reference Range Interpretation Comments Glucose Level (test code = HBL0105) 165 74-118 [facility] Tylererum or plasma calcium measurement (mass/volume)2019-11-22 05:20:00* Test Item Value Reference Range Interpretation Comments Calcium Level (test code = 87449-4) 8.5 8.4-10.2 [facility] Tylererum or plasma total bilirubin measurement (mass/volume)2019-11-22 05:20:00* Test Item Value Reference Range Interpretation Comments Total Bilirubin (test code = 1975-2) 0.2 0.2-1.2 [facility] CenterFluoroscopic procedure less than one hour epyiorlc3751-18-83 05:20:00* Test Item Value Reference Range Interpretation Comments Aspartate Amino Transf (AST/SGOT) (test code = Aspartate Amino Transf (AST/SGOT)) 45 5-34 [facility] Tylererum or plasma alanine aminotransferase measurement (enzymatic activity/volume)2019-11-22 05:20:00* Test Item Value Reference Range Interpretation Comments Alanine Aminotransferase (ALT/SGPT) (test code = 1742-6) 40 0-55 [facility] Tylererum or plasma protein measurement (mass/volume)2019-11-22 05:20:00* Test Item Value Reference Range Interpretation Comments Total Protein (test code = 2885-2) 6.6 6.5-8.1 [facility] Tylererum or plasma albumin measurement (mass/volume)2019-11-22 05:20:00* Test Item Value Reference Range Interpretation Comments Albumin (test code = 1751-7) 3.1 3.5-5.0 [facility] CenterPlasma globulin measurement (mass/volume) 2019-11-22 05:20:00* Test Item Value Reference Range Interpretation Comments Globulin (test code = 35952-4) 3.5 2.3-3.5 [facility] Tylererum or plasma albumin/globulin mass emibu3125-47-06 05:20:00* Test Item Value Reference Range Interpretation Comments Albumin/Globulin Ratio (test code = 1759-0) 0.9 0.8-2.0 [facility] Tylererum or plasma alkaline phosphatase measurement (enzymatic activity/volume)2019-11-22 05:20:00* Test Item Value Reference Range Interpretation Comments Alkaline Phosphatase (test code = 6768-6) 68 40-150 [facility] CenterCT ABDOMEN/PELVIS J9623-13-09 11:37:00 [facility] [address] [address] Patient Name: NABIL PIEDRA MR #: [id number] : 1955 Age/Sex: 64/F Req #: [id number] Adm Physician: Ordered by: ESTHER RIBEIRO DO Report #: [id number] Location: ER Room/Bed: Procedure: [id number] CT/CT ABDOMEN/P MY W Exam Date: 11/21/19 Exam Time: 1050 REPORT STATUS: Signed EXAM: CT Abdomen a nd Pelvis WITH contrast INDICATION: lisa-umbilical pain COMPARISON: None. TECHNIQUE: Abdomen and pelvis were scanned utilizing a multidetector helical scanner from the lung base to the pubic symphysis after administration of IV contrast. Coronal and sagittal reformations were obtained. Dose modulation, it erative reconstruction, and/or weight based adjustment of the mA/kV was utiliz ed to reduce the radiation dose to as low as reasonably achievable. Routine pr otocol was performed. Scan was performed when during portal venous phase. IV CONTRAST: 150 mL of Omnipaque 300 ORAL CONTRAST: Water COMPLICATIONS: None RADIATION DOSE: Total DLP: 745.09 mGy-cm Estimated effective dose: (DLP x 0.015 x size factor) mSv CTDIvol has been reviewed. It is below the limits set by the Radiation Protocol [facility] ([facility]). FINDINGS: LINES and TUBES: None. LOWER THORAX: Unre markable HEPATOBILIARY: No focal hepatic lesions. No biliary ductal di lation. GALLBLADDER: No radio-opaque stones or sludge. No gallbladder wall thickening. SPLEEN: No splenomegaly. No focal splenic lesion. PA NCREAS: No focal masses or ductal dilatation. ADRENALS: No adrenal nodule s KIDNEYS/URETERS: Kidneys enhance symmetrically. No hydronephrosis. No cystic or solid mass lesions. No stones. GI TRACT: No abnormal distenti on, or evidence of bowel obstruction. The appendix is enlarged and edematous ( series 2, image [id number] with adjacent inflammatory stranding compatible with acu te appendicitis. There is no evidence of perforation or phlegmon formation. PELVIC ORGANS/BLADDER: The bladder is unremarkable. LYMPH NODES: No lymphadenopathy. VESSELS: No aortic aneurysm or dissection. PERITONEUM / RETROPERITONEUM: No free air or fluid. BONES: There are degenerative changes in the spine. There is a focus of sclerosis in the L3 vertebral body likely a bone island. SOFT TISSUES: Unremarkable. IMPRESSION: Uncomplicated acute appendicitis. Signed by: Nikita Andres MD on 11/21/2019 11:45 AM Dictated By: NIKITA DOTY MD 1145 Trans cribed By: MIREILLE on 11/21/19 1145 COPY TO: ESTHER RIBEIRO DO Urine color vesiqkxqipfvt6969-30-69 08:30:00* Test Item Value Reference Range Interpretation Comments Urine Color (test code = 5778-6) YELLOW YELLOW [facility] CenterUrine rkqnrun2168-14-56 08:30:00* Test Item Value Reference Range Interpretation Comments Urine Clarity (test code = 72558-5) HAZY CLEAR [facility] gravity of Urine by Test strip 2019-11-21 08:30:00* Test Item Value Reference Range Interpretation Comments Urine Specific [place] (test code = 5811-5) >=1.030 1.010-1.02 5 [facility] CenterUrine pH measurement by automated test zapjx0788-64-47 08:30:00* Test Item Value Reference Range Interpretation Comments Urine pH (test code = 12386-5) 6 5-7 [facility] CenterU[facility] leukocyte esterase detection by voltlybv4669-46-76 08:30:00* Test Item Value Reference Range Interpretation Comments Urine Leukocyte Esterase (test code = 5799-2) NEGATIVE NEGATIVE [facility] CenterUrine nitrite rzddbbkgv1817-61-72 08:30:00* Test Item Value Reference Range Interpretation Comments Urine Nitrite (test code = 24897-3) NEGATIVE NEGATIVE [facility] CenterU[facility] protein measurement by test strip (mass/volume)2019-11-21 08:30:00* Test Item Value Reference Range Interpretation Comments Urine Protein (test code = 5804-0) >=300 NEGATIVE [facility] CenterU[facility] glucose zqxtnxcdk6787-78-58 08:30:00* Test Item Value Reference Range Interpretation Comments Urine Glucose (UA) (test code = 2349-9) NEGATIVE NEGATIVE [facility] CenterUrine ketones detection by automated test jxyut0714-10-54 08:30:00* Test Item Value Reference Range Interpretation Comments Urine Ketones (test code = 57484-6) TRACE NEGATIVE [facility] CenterUrine urobilinogen measurement by test strip (mass/volume)2019-11-21 08:30:00* Test Item Value Reference Range Interpretation Comments Urine Urobilinogen (test code = 45043-7) 0.2 0.2-1 [facility] Center[facility] total bilirubin measurement (mass/volume)2019-11-21 08:30:00* Test Item Value Reference Range Interpretation Comments Urine Bilirubin (test code = 1978-6) SMALL NEGATIVE [facility] CenterU[facility] erythrocytes awagzdyuk2242-62-92 08:30:00* Test Item Value Reference Range Interpretation Comments Urine Blood (test code = 66259-8) TRACE NEGATIVE [facility] CenterAutomated urine sediment leukocyte count by microscopy (number/high power field)2019-11-21 08:30:00* Test Item Value Reference Range Interpretation Comments Urine WBC (test code = 5821-4) 0-5 0-5 [facility] CenterErythrocytes detection in urine sediment by light ezqfdhuura7020-09-02 08:30:00* Test Item Value Reference Range Interpretation Comments Urine RBC (test code = 99769-4) 0-5 0-5 [facility] CenterBacteria detection in urine sediment by light wazyjoygzo2264-47-26 08:30:00* Test Item Value Reference Range Interpretation Comments Urine Bacteria (test code = 01940-8) FEW NONE [facility] CenterEpithelial cells detection in urine sediment by light cstvmzwjqh3546-81-59 08:30:00* Test Item Value Reference Range Interpretation Comments Urine Epithelial Cells (test code = 85405-4) FEW NONE [facility] CenterMucus detection in urine sediment by light jxghblodqo5841-74-81 08:30:00* Test Item Value Reference Range Interpretation Comments Urine Mucus (test code = 8247-9) [facility] Tylererum or plasma lipase measurement (enzymatic activity/volume)2019-11-21 08:30:00* Test Item Value Reference Range Interpretation Comments Lipase (test code = 3040-3) 26 8- [facility]
--- OUTSIDE RECORDS SUMMARY | 2019-12-25 02:15 | XMS REPORT | Continuity of Care Document ---
Author Author [facility] t Organization [facility] Address [address] [place] [address] Phone Unavailable Care Team Providers Care Senior Environmental Consultant Name Role Phone MD Ne LU PCP ESTHER RIBEIRO Unavailable Payers Payer Name Policy Type Policy Number Effective Date Expiration Date S ource Medicare A & B [id number] [facility] Problems Condition Name Condition Details Condition Category Status Onset Date Resolution Date Last Treatment Date Treating Clinician Comments Source Osteomyelitis of shoulder, right Osteomyelitis of shoulder, righ t Disease Active 2010-05-30 00:00:00 [employer] Chronic right shoulder pain Chronic right shoulder pain Disease Active 2010-05-30 00:00:00 [facility] rachel Osteoarthritis of right shoulder region Osteoarthritis of ri ght shoulder region Disease Active 2010-05-30 00:00:00 [facility] 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 Dis ease Active 2010-05-30 00:00:00 [facility] DJD of shoulder DJD of shoulder Disease Active 2010-05-23 00:00:00 [facility] Unspecified constipation Unspecified constipation Disease Acti ve 2009-06-22 00:00:00 [facility] Knee pain Knee pain Disease Active 2009-05-26 00:00:00 [facility] Obesity, unspecified Obesity, unspecified Disease Active 00:00:00 [facility] Appendicitis Problem Active [facility] HTN (hypertension) HTN (hypertension) Disease Active [facility] Allergies, Adverse Reactions, Alerts Allergy Name Allergy Type Status Severity Reaction(s) Onset Date Inacti ve Date Treating Clinician Comments Source Flu Vac 2011 (18-64yrs)(Pf) Propensity to adverse reactions to drug Active Nausea and [facility] 2014[facility]03[facility]31 [facility] Family Member Diagnosis Comments Start Date Stop Date Source Natural father Arthritis [facility] Natural mother Heart [facility] Social History Social Habit Start Date Stop Date Quantity Comments Source History of tobacco use Cigarette Smoker [facility] Sex Assigned At [facility] Alcohol intake 2018-10-29 00:00:00 2018-10-29 00:00:00 Current drinker of alcohol (finding) [facility] SDOH Food Worry 2017-08-09 00:00:00 2017-08-09 00:00:00 1 [facility] Food Scarcity 2017-08-09 00:00:00 2017-08-09 00:00:00 1 [facility] Tobacco Comment 2015-09-06 00:00:00 2015-09-06 00:00:00 4 cigarettes daily [facility] Alcohol Comment 2015-09-06 00:00:00 2015-09-06 00:00:00 occasional be er [facility] Smoking Status Start Date Stop Date Source Current every day smoker 2018-10-29 00:00:00 [facility] Medications Ordered Medication Name Filled Medication Name Start Date Stop Da te Current Medication? Ordering Clinician Indication Dosage Frequency Signature (SIG) Comments Components Source docusate sodium (COLACE) 100 mg capsule 2018-09-08 00:00:00 Yes Constipation, unspecified constipation type Take 1 -4 /d depending on bowels. [facility] traMADol (ULTRAM) 50 mg tablet 2018-09-08 00:00:00 Yes Low back pain with sciatica, sciatica laterality unspecified, unspecified back pain laterality, unspecified chronicity 50mg Q.5D Take 1 tablet by mouth 2 times daily Take 1 pill twice a day. [facility] amLODIPine (NORVASC) 5 mg tablet 2018-08-01 00:00:00 Yes Medication refill 5mg QD Take 1 tablet by mouth daily. [facility] hydroCHLOROthiazide (HYDRODIURIL) 25 mg tablet 2018-08-01 00 :00:00 Yes Medication refill 25mg QD Take 1 tablet by mouth daily. [facility] atorvastatin (LIPITOR) 40 mg tablet 2018-08-01 00:00:00 Yes Mixed hyperlipidemia 40mg Take 1 tablet by mouth at bedtime nightly. [facility] traMADol (ULTRAM) 50 mg tablet 2018-08-01 00:00:00 Yes Low back pain without sciatica, unspecified back pain laterality, unspecified chronicity 50mg Take 1 tablet by mouth every 8 hours as needed for Pain. [facility] Diclofenac Sodium (VOLTAREN) 1 % Gel 2018-05-16 00:00:00 Yes Low back pain without sciatica, unspecified back pain laterality, unspecified chronicity Apply to affected area. [facility] baclofen (LIORESAL) 10 mg tablet 2017-12-06 00:00:00 Yes Medication refill 10mg Take 1 tablet by mouth 3 times daily as needed for Pain. [facility] blood glucose meter 2010-03-20 00:00:00 Yes Type II or unspecified type diabetes mellitus without mention of complication, not stated as uncontrolled Use as directed. [facility] LANCETS 2010-03-20 00:00:00 Yes Type II or unspecified type diabetes mellitus without mention of complication, not stated as uncontrolled Use as Directed [facility] Tramadol Hcl/Acetaminophen (Ultracet Tablet) 1 Each TA BLET Tramadol Hcl/Acetaminophen (Ultracet Tablet) 1 Each TABLET Yes Every 4 Hours as needed for Mild Pain (1-3) Or Fever>100.8 [facility] Immunizations Ordered Immunization Name Filled Immunization Name Date Status Comments Source PPD 2014-03-15 00:00:[address] [facility] Td Tetanus, diphtheria Toxoids Vaccine 2008-11-24 00:00:00 Completed [facility] Vital Signs Vital Name Observation Time Observation Value Comments Source Body Temperature 2019-11-22 09:07:00 98.5 [degF] [facility] BMI (Body Mass Index) 2019-11-21 16:23:00 40.7 kg/m2 [facility] Weight 2019-11-21 08:32:00 237 [lb_av] [facility] Procedures Procedure Date / Time Performed Performing Clinician [facility] e Computed tomography of abdomen and pelvis with contrast 00:00:00 [facility] Plan of Care Planned Activity Planned Date Details Comments Source Future Scheduled Test 2019-08-02 00:00:00 Breast Cancer Scrn (Yearly) [code = Breast Cancer Scrn (Yearly)] [facility] Future Scheduled Test 2019 00:00:00 IMM Pneumococcal A ge 65 and Up [code = IMM Pneumococcal Age 65 and Up] [facility] Scheduled Test 2017-05-27 00:00:00 Screening for reagan gnant neoplasm of colon (procedure) [code = 590413423] [facility] Instructions Wound Care (General) [facility] Encounters Start Date/Time End Date/Time Encounter Type Admission Type [facility] Care Department Encounter ID Source 2019-11-21 12:04:00 2019-11-22 09:15:00 Discharged Inpatient 1 ESTHER RIBEIRO [facility] [id number] [facility] 2018-09-05 00:00:00 2018-09-05 00:00:00 Outpatient [facility] [id number] [facility] 2018-09-05 00:00:00 2018-09-05 00:00:00 Outpatient [facility] [id number] [facility] 2018-09-02 00:00:00 2018-09-02 00:00:00 Outpatient [facility] [id number] [facility] 2018-08-08 00:00:00 2018-08-08 00:00:00 Outpatient [facility] [id number] [facility] 2018-08-08 00:00:00 2018-08-08 00:00:00 Outpatient [facility] [id number] [facility] 2018-08-08 00:00:00 2018-08-08 00:00:00 Outpatient [facility] [id number] [facility] 2018-08-06 00:00:00 2018-08-06 00:00:00 Outpatient [facility] [id number] [facility] 2018-08-06 00:00:00 2018-08-06 00:00:00 Outpatient [facility] [id number] [facility] 2018-08-01 14:10:15 2018-08-01 14:10:15 Outpatient [facility] [id number] [facility] 2018-08-01 13:26:35 2018-08-01 13:26:35 Outpatient [facility] [id number] [facility] 2018-08-01 13:21:23 2018-08-01 13:21:23 Outpatient [facility] [id number] [facility] 2018-08-01 12:35:18 2018-08-01 12:35:18 Outpatient [facility] [id number] [facility] 2018-06-27 10:54:51 2018-06-27 10:54:51 Outpatient [facility] [id number] [facility] 2018-05-16 09:14:35 2018-05-16 09:14:35 Outpatient [facility] [id number] [facility] 2017-12-06 09:12:20 2017-12-06 09:12:20 Outpatient [facility] [id number] [facility] 2017-10-17 11:22:20 2017-10-17 11:22:20 Outpatient [facility] [id number] [facility] 2017-10-17 00:00:00 2017-10-17 00:00:00 Outpatient [facility] [id number] [facility] 2017-10-16 00:00:00 2017-10-16 00:00:00 Outpatient [facility] [id number] [facility] 2017-08-20 00:00:00 2017-08-20 00:00:00 Outpatient [facility] [id number] [facility] 2017-08-09 14:08:59 2017-08-09 14:08:59 Outpatient [facility] [id number] [facility] 2017-08-09 09:06:49 2017-08-09 09:06:49 Outpatient [facility] [id number] [facility] Results Test Description Test Time Test Comments Results Result Comments Source Blood leukocytes automated count (number/volume) 2019-11-22 05:20:00 Test Item White Blood Count (test code = 6690-2) 15.95 4.8-10.8 [facility] automated count (number/volume)2019-11-22 05:20:00* Test Item Value Reference Range Interpretation Comments Red Blood Count (test code = 789-8) 4.00 3.6-5.1 [facility] hemoglobin measurement (moles/volume)2019-11-22 05:20:00* Test Item Value Reference Range Interpretation Comments Hemoglobin (test code = 97917-9) 10.9 12.0-16.0 [facility] blood hematocrit (volume fraction)2019-11-22 05:20:00* Test Item Value Reference Range Interpretation Comments Hematocrit (test code = 4544-3) 34.5 34.2-44.1 [facility] Marshall[facility] erythrocyte mean corpuscular qqfkai1851-10-32 05:20:00* Test Item Value Reference Range Interpretation Comments Mean Corpuscular Volume (test code = 787-2) 86.3 81-99 [facility] Marshall[facility] erythrocyte mean corpuscular hemoglobin (mass per erythrocyte)2019-11-22 05:20:00* Test Item Value Reference Range Interpretation Comments Mean Corpuscular Hemoglobin (test code = 785-6) 27.3 28-32 [facility] Marshall[facility] erythrocyte mean corpuscular hemoglobin concentration measurement (mass/volume)2019-11-22 05:20:00* Test Item Value Reference Range Interpretation Comments Mean Corpuscular Hemoglobin Concent (test code = 786-4) 31.6 31-35 [facility] Marshall[facility]DW HzrUw-Rva5806-79-28 05:20:00* Test Item Value Reference Range Interpretation Comments Red Cell Distribution Width (test code = 55242-5) 14.6 11.7 -14.4 [facility] Marshall[facility] blood platelet count (count/volume)2019-11-22 05:20:00* Test Item Value Reference Range Interpretation Comments Platelet Count (test code = 777-3) 241 140-360 [facility] count as percentage of total lalzjovsvd1496-81-47 05:20:00* Test Item Value Reference Range Interpretation Comments Neutrophils (%) (Auto) (test code = 48180-8) 86.5 38.7-80.0 [facility] lymphocyte count as percentage ot total qygjjhqavd0749-19-16 05:20:00* Test Item Value Reference Range Interpretation Comments Lymphocytes (%) (Auto) (test code = 736-9) 6.2 18.0-39.1 [facility] count as percentage of total ahwuvbbwny1831-09-73 05:20:00* Test Item Value Reference Range Interpretation Comments Monocytes (%) (Auto) (test code = 5905-5) 6.4 4.4-11.3 [facility] blood eosinophil count as percentage of total bzrftobdtq3655-10-91 05:20:00* Test Item Value Reference Range Interpretation Comments Eosinophils (%) (Auto) (test code = 713-8) 0.0 0.0-6.0 [facility] blood basophil count as percentage of total tgqwizimud7421-69-77 05:20:00* Test Item Value Reference Range Interpretation Comments Basophils (%) (Auto) (test code = 706-2) 0.3 0.0-1.0 [facility] MarshallFluoroscopic procedure less than one hour rlrbbqod7411-03-52 05:20:00* Test Item Value Reference Range Interpretation Comments IM GRANULOCYTES % (test code = IM GRANULOCYTES %) 0.6 0.0- 1.0 [facility] blood neutrophil count 2019-11-22 05:20:00* Test Item Value Reference Range Interpretation Comments Neutrophils # (Auto) (test code = 751-8) 13.8 2.1-6.9 [facility] lymphocytes count (number/volume) 2019-11-22 05:20:00* Test Item Value Reference Range Interpretation Comments Lymphocytes # (Auto) (test code = 18374-8) 1.0 1.0-3.2 [facility] monocytes automated count (number/volume)2019-11-22 05:20:00* Test Item Value Reference Range Interpretation Comments Monocytes # (Auto) (test code = 742-7) 1.0 0.2-0.8 [facility] Marshall[facility] blood eosinophil count 2019-11-22 05:20:00* Test Item Value Reference Range Interpretation Comments Eosinophils # (Auto) (test code = 711-2) 0.0 0.0-0.4 [facility] blood basophil count (count/volume)2019-11-22 05:20:00* Test Item Value Reference Range Interpretation Comments Basophils # (Auto) (test code = 704-7) 0.1 0.0-0.1 [facility] MarshallFluoroscopic procedure less than one hour vqhjgtbc9876-90-13 05:20:00* Test Item Value Reference Range Interpretation Comments Absolute Immature Granulocyte (auto (marianne t code = Absolute Immature Granulocyte (auto) 0.09 0-0.1 [facility] sodium [facility] (moles/volume)2019-11-22 05:20:00* Test Item Value Reference Range Interpretation Comments Sodium Level (test code = 2951-2) 138 136-145 [facility] potassium measurement (moles/volume)2019-11-22 05:20:00* Test Item Value Reference Range Interpretation Comments Potassium Level (test code = 2823-3) 3.5 3.5-5.1 [facility] plasma chloride measurement (moles/volume)2019-11-22 05:20:00* Test Item Value Reference Range Interpretation Comments Chloride Level (test code = 2075-0) 104 98-107 [facility] plasma carbon dioxide, total measurement (moles/volume)2019-11-22 05:20:00* Test Item Value Reference Range Interpretation Comments Carbon Dioxide Level (test code = 2028-9) 26 22-29 [facility] plasma anion uvg7943-36-62 05:20:00* Test Item Value Reference Range Interpretation Comments Anion Gap (test code = 63006-5) 11.5 8-16 [facility] urea nitrogen measurement (mass/volume)2019-11-22 05:20:00* Test Item Value Reference Range Interpretation Comments Blood Urea Nitrogen (test code = 3094-0) 8 7-26 [facility] plasma creatinine measurement (mass/volume)2019-11-22 05:20:00* Test Item Value Reference Range Interpretation Comments Creatinine (test code = 2160-0) 0.75 0.57-1.11 [facility] plasma urea nitrogen/creatinine mass tcswo6735-93-82 05:20:00* Test Item Value Reference Range Interpretation Comments BUN/Creatinine Ratio (test code = 3097-3) 11 6-25 [facility] MarshallEstimated glomerular filtration rate (GFR) hnzxxavphyrya4478-69-68 05:20:00* Test Item Value Reference Range Interpretation Comments Estimat Glomerular Filtration Rate (test code = 198264206) > 60 >60 Ranges were taken from the National Kidney Disease Education Program and the [facility] literature.Reference ranges:60 or greater: Lsunfc12-65 ( for 3 consecutive months): Chronic kidney disease 15 or less: Kidney failureCH[facility] – MarshallGlucose cyqmzlpfwum3139-81-14 05:20:00* Test Item Value Reference Range Interpretation Comments Glucose Level (test code = QOY0148) 165 74-118 [facility] or plasma calcium measurement (mass/volume)2019-11-22 05:20:00* Test Item Value Reference Range Interpretation Comments Calcium Level (test code = 00503-8) 8.5 8.4-10.2 [facility] or plasma total bilirubin measurement (mass/volume)2019-11-22 05:20:00* Test Item Value Reference Range Interpretation Comments Total Bilirubin (test code = 1975-2) 0.2 0.2-1.2 [facility] MarshallFluoroscopic procedure less than one hour tlzcmdcl4725-21-87 05:20:00* Test Item Value Reference Range Interpretation Comments Aspartate Amino Transf (AST/SGOT) (test code = Aspartate Amino Transf (AST/SGOT)) 45 5-34 [facility]er[facility] or plasma alanine aminotransferase measurement (enzymatic activity/volume)2019-11-22 05:20:00* Test Item Value Reference Range Interpretation Comments Alanine Aminotransferase (ALT/SGPT) (test code = 1742-6) 40 0-55 [facility]er[facility] or plasma protein measurement (mass/volume)2019-11-22 05:20:00* Test Item Value Reference Range Interpretation Comments Total Protein (test code = 2885-2) 6.6 6.5-8.1 [facility] Hospitaler[facility] or plasma albumin measurement (mass/volume)2019-11-22 05:20:00* Test Item Value Reference Range Interpretation Comments Albumin (test code = 1751-7) 3.1 3.5-5.0 [facility] Marshall[facility]asma globulin measurement (mass/volume) 2019-11-22 05:20:00* Test Item Value Reference Range Interpretation Comments Globulin (test code = 29233-5) 3.5 2.3-3.5 [facility] or plasma albumin/globulin mass hjvly0712-67-05 05:20:00* Test Item Value Reference Range Interpretation Comments Albumin/Globulin Ratio (test code = 1759-0) 0.9 0.8-2.0 [facility] or plasma alkaline phosphatase measurement (enzymatic activity/volume)2019-11-22 05:20:00* Test Item Value Reference Range Interpretation Comments Alkaline Phosphatase (test code = 6768-6) 68 40-150 [facility]PELVIS [id number] 11:37:00 [facility] [address] [address] Patient Name: NABIL PIEDRA MR #: [id number] : 1955 Age/Sex: 64/F Req #: [id number] Adm Physician: Ordered by: ESTHER RIBEIRO DO Report #: [id number] Location: ER Room/Bed: Procedure: [id number] CT/CT ABDOMEN/P MY W Exam Date: 11/21/19 [...] the limits set by the Radiation Protocol [facility] ([facility]). FINDINGS: LINES and TUBES: None. [...] COPY TO: ESTHER RIBEIRO DO Urine color nfdtrcltlfmqe8226-40-08 08:30:00* Test Item Value Reference Range Interpretation Comments Urine Color (test code = 5778-6) YELLOW YELLOW [facility] Marshall[facility] qrtolwm2963-46-01 08:30:00* Test Item Value Reference Range Interpretation Comments Urine Clarity (test code = 01308-9) HAZY CLEAR [facility] Hospitalpecific gravity of Urine by Test strip 2019-11-21 08:30:00* Test Item Value Reference Range Interpretation Comments Urine Specific [place] (test code = 5811-5) >=1.030 1.010-1.02 5 [facility] Marshall[facility] pH measurement by automated test icgrs3399-64-49 08:30:00* Test Item Value Reference Range Interpretation Comments Urine pH (test code = 28986-6) 6 5-7 [facility] Marshall[facility] leukocyte esterase detection by upmabeii6558-31-77 08:30:00* Test Item Value Reference Range Interpretation Comments Urine Leukocyte Esterase (test code = 5799-2) NEGATIVE NEGATIVE [facility] Marshall[facility]rine nitrite qmpyvmdnu4121-35-14 08:30:00* Test Item Value Reference Range Interpretation Comments Urine Nitrite (test code = 27601-8) NEGATIVE NEGATIVE [facility] Marshall[facility] protein measurement by test strip (mass/volume)2019-11-21 08:30:00* Test Item Value Reference Range Interpretation Comments Urine Protein (test code = 5804-0) >=300 NEGATIVE [facility] Marshall[facility] glucose zvpivoyyl2837-60-06 08:30:00* Test Item Value Reference Range Interpretation Comments Urine Glucose (UA) (test code = 2349-9) NEGATIVE NEGATIVE [facility] Marshall[facility] ketones detection by automated test gryzi9526-14-28 08:30:00* Test Item Value Reference Range Interpretation Comments Urine Ketones (test code = 47073-9) TRACE NEGATIVE [facility] Marshall[facility]rine urobilinogen measurement by test strip (mass/volume)2019-11-21 08:30:00* Test Item Value Reference Range Interpretation Comments Urine Urobilinogen (test code = 55654-6) 0.2 0.2-1 [facility] total bilirubin measurement (mass/volume)2019-11-21 08:30:00* Test Item Value Reference Range Interpretation Comments Urine Bilirubin (test code = 1978-6) SMALL NEGATIVE [facility] Marshall[facility] erythrocytes xaafgknbn6790-85-53 08:30:00* Test Item Value Reference Range Interpretation Comments Urine Blood (test code = 85940-2) TRACE NEGATIVE [facility] MarshallAutomated urine sediment leukocyte count by microscopy (number/high power field)2019-11-21 08:30:00* Test Item Value Reference Range Interpretation Comments Urine WBC (test code = 5821-4) 0-5 0-5 [facility] MarshallErythrocytes detection in urine sediment by light ihfafxydtt8071-95-25 08:30:00* Test Item Value Reference Range Interpretation Comments Urine RBC (test code = 48888-3) 0-5 0-5 [facility] MarshallBacteria detection in urine sediment by light vdxfgcgjgk7507-35-00 08:30:00* Test Item Value Reference Range Interpretation Comments Urine Bacteria (test code = 94765-6) FEW NONE [facility] MarshallEpithelial cells detection in urine sediment by light edlxwrhyzf6743-81-81 08:30:00* Test Item Value Reference Range Interpretation Comments Urine Epithelial Cells (test code = 79609-7) FEW NONE [facility] MarshallMucus detection in urine sediment by light mrnvfeaikd1636-36-04 08:30:00* Test Item Value Reference Range Interpretation Comments Urine Mucus (test code = 8247-9) MODERATE RARE [facility] or plasma lipase measurement (enzymatic activity/volume)2019-11-21 08:30:00* Test Item Value Reference Range Interpretation Comments Lipase (test code = 3040-3) 26 8- [facility]
--- OUTSIDE RECORDS SUMMARY | 2019-12-25 02:15 | XMS REPORT | Clinical Summary ---
Author Author [facility] ict Organization [facility] ict Address Unknown Phone Unavailable Care Team Providers Care [employer] Specialist Name Role Phone Verna Dunn MD PCP [phone] Allergies Comments Active Allergy Reactions Severity [...] didn't last and you didn't have mo kiik to get more. Sex Assigned at Date [...]
== END 2019-11-22 09:15 | disposition home or self-care (01) | DRG 854 ==
LOC: ER 08:31 → ERHOLD 12:04 → MED/SURG 16:18
PROVIDERS: ADMIT Internal Medicine; ATTEND Internal Medicine
PROC: 0DTJ4ZZ Resection of Appendix, Percutaneous Endoscopic Approach (ICD-10-PCS; principal; 2019-11-21 14:11)
DX: A41.9 Sepsis, unspecified organism (principal); K35.80 Unspecified acute appendicitis; Z68.41 Body mass index [BMI] 40.0-44.9, adult; I10 Essential (primary) hypertension; E87.6 Hypokalemia; E66.01 Morbid (severe) obesity due to excess calories
CPT/HCPCS: 36415; 74177; 80053; 81001; 83690; 85025; 88304; 99284; J0330; J1100; J1885; J2001; J2250; J2270; J2310; J2405; J2543; J3010; J7030; Q9967; U0002

== ENCOUNTER 2020-04-05 09:22 | Emergency (ER) | payer SELFPAY ==
[~2020-04-05] VITALS: Ht 170.2 cm; Wt 107.5 kg
[~2020-04-05 09:22] MED LIST: ULTRACET TABLE1 EACH PO
[2020-04-05] MEDS ORDERED: KETOROLAC TROMETHAMINE 30 MG/ML VIAL IV ONE (09:53)
[2020-04-05] MEDS ORDERED: DEXAMETHASONE SOD PHOS 10 MG/1 ML VIAL IV ONE (10:00)
[2020-04-05 10:15] LABS: BASOPHILS # (AUTO) 0.1 (0.0-0.1); BASOPHILS % 1.3 % (0.0-1.0); EOSINOPHILS # (AUTO) 0.2 (0.0-0.4); EOSINOPHILS % 2.6 % (0.0-6.0); HEMOGLOBIN 12.2 g/dL (12.0-16.0); LYMPHOCYTES # (AUTO) 1.9 (1.0-3.2); LYMPHOCYTES % 25.4 % (18.0-39.1); MEAN CORPUSCULAR HEMOGLOBIN 27.9 pg (28-32); MEAN CORPUSCULAR HGB CONC 32.1 g/dL (31-35); MEAN CORPUSCULAR VOLUME 86.8 fL (81-99); MONOCYTES # (AUTO) 0.5 (0.2-0.8); NEUTROPHILS # (AUTO) 4.8 (2.1-6.9); NEUTROPHILS % 63.3 % (38.7-80.0); PLATELET COUNT 268 x10e3/uL (140-360); RED BLOOD COUNT 4.38 x10e6/uL (3.6-5.1); RED CELL DISTRIBUTION WIDTH 15.1 % (11.7-14.4)
[2020-04-05 10:37] LABS: ALANINE AMINOTRANSFERASE 16 IU/L (0-55); ALBUMIN 3.9 g/dL (3.5-5.0); ALBUMIN/GLOBULIN RATIO 1.1 (0.8-2.0); ALKALINE PHOSPHATASE 62 IU/L (40-150); ANION GAP 13.5 mmol/L (8-16); BLOOD UREA NITROGEN 12 mg/dL (7-26); BUN/CREATININE RATIO 17 (6-25); CALCIUM 9.7 mg/dL (8.4-10.2); CARBON DIOXIDE 28 mmol/L (22-29); CHLORIDE 103 mmol/L (98-107); CREATINE KINASE 126 IU/L (29-168); CREATININE, SERUM 0.72 mg/dL (0.57-1.11); EST GLOMERULAR FILTRATION RATE > 60 ML/MIN (60-); GLUCOSE 137 mg/dL (74-118); POTASSIUM 3.5 mmol/L (3.5-5.1); SODIUM 141 mmol/L (136-145)
[2020-04-05 10:46] LABS: INR 0.94; PARTIAL THROMBOPLASTIN TIME 26.5 seconds (23.8-35.5); PROTHROMBIN TIME 13.1 seconds (11.9-14.5)
[2020-04-05 11:51] LABS: CLARITY,URINE CLEAR (CLEAR); COLOR,URINE YELLOW (YELLOW)
[2020-04-05 11:52] LABS: BILIRUBIN,URINE NEGATIVE (NEGATIVE); KETONES,URINE NEGATIVE (NEGATIVE); LEUKOCYTE ESTERASE ,URINE NEGATIVE (NEGATIVE); NITRITE,URINE NEGATIVE (NEGATIVE); PROTEIN,URINE DIPSTICK NEGATIVE (NEGATIVE); URINE UROBILINOGEN 0.2 mg/dL (0.2 - 1)
[2020-04-05 11:53] LABS: BACTERIA,URINE RARE /HPF; EPITHELIAL CELLS,URINE FEW /LPF; WBC,URINE (MAN) 0-5 /HPF (0-5)
[2020-04-05 12:56] VITALS: BP 131/82
== END 2020-04-05 13:01 | disposition home or self-care (01) ==
LOC: ER 09:40
DX: M54.41 Lumbago with sciatica, right side (principal); I10 Essential (primary) hypertension; R60.9 Edema, unspecified
CPT/HCPCS: 36415; 71045; 80053; 81001; 82550; 82553; 83880; 84484; 85025; 85610; 85730; 87086; 93005; 93970; 99284; J1100; J1885

== ENCOUNTER 2020-06-18 10:05 | Emergency (ER) | payer MEDICARE ==
[~2020-06-18] VITALS: Ht 170.2 cm; Wt 107.5 kg
[2020-06-18] MEDS ORDERED: ULTRAM 50MG50 MG PO (11:19)
== END 2020-06-18 11:48 | disposition home or self-care (01) ==
LOC: ER 10:14
DX: M54.42 Lumbago with sciatica, left side (principal); G89.29 Other chronic pain; I10 Essential (primary) hypertension; F17.210 Nicotine dependence, cigarettes, uncomplicated
CPT/HCPCS: 99282

== ENCOUNTER 2020-06-21 11:30 | Emergency (ER) | payer MEDICARE ==
[~2020-06-21] VITALS: Ht 170.2 cm; Wt 107.5 kg
[~2020-06-21 11:30] MED LIST changes: +ULTRAM 50MG50 MG PO
[2020-06-21] MEDS ORDERED: HYDROCODONE/APAP 10MG-325MG TAB PO ONE (13:30)
[2020-06-21] MEDS ORDERED: HYDROCODON-ACE1 EA15 PO (15:24)
== END 2020-06-21 15:56 | disposition home or self-care (01) ==
LOC: ER 11:42
DX: S82.852A Displaced trimalleolar fracture of left lower leg, initial encounter for closed fracture (principal); M25.562 Pain in left knee; X50.1XXA Overexertion from prolonged static or awkward postures, initial encounter; Y93.01 Activity, walking, marching and hiking; I10 Essential (primary) hypertension; M54.9 Dorsalgia, unspecified; G89.29 Other chronic pain; F17.210 Nicotine dependence, cigarettes, uncomplicated
CPT/HCPCS: 99284